=== PATIENT | female | born 1955 | race Caucasian/White ===

== ENCOUNTER → 2018-08-17 | Outpatient (CLI) | payer OTHER ==
--- NOTE | 2018-08-17 14:42 | RADIOLOGY REPORT (SQ) ---
EXAM DESCRIPTION: MRI CERVICAL SPINE WITHOUT COMPLETED DATE/TIME: 08/17/2018 2:11 pm REASON FOR STUDY: R20.2 PARESTHESIA OF SKIN M79.641 PAIN IN RIGHT HAND R20.2 PARESTHESIA OF SKIN COMPARISON: None. TECHNIQUE: Sagittal and Axial imaging includes T1, T2, STIR and gradient echo sequences. LIMITATIONS: None. FINDINGS: ALIGNMENT: Normal. VERTEBRAE: Intact. BONE MARROW: Normal. No marrow replacement or reactive changes. DISCS: Disc spaces are narrowed from C4-C7 with decreased signal intensity in the discs from C5-C7. HARDWARE: None in the spine. CORD AND BASE OF BRAIN: Normal in size and signal intensity. SOFT TISSUES: No soft tissue masses. C1-C2: No significant spinal stenosis. C2-C3: No significant spinal stenosis or exit foraminal stenosis. C3-C4: No significant spinal stenosis or exit foraminal stenosis. C4-C5: Broad-based disc/osteophyte complex that contacts the spinal cord without deforming the cord s ignificantly. C5-C6: Broad-based disc/osteophyte complex contacts the spinal cord without deforming the cord. Mild right foraminal narrowing. C6-C7: No significant spinal stenosis or exit foraminal stenosis. C7-T1: No significant spinal stenosis or exit foraminal stenosis. UPPER THORACIC: Incompletely imaged. No significant spinal stenosis or exit foraminal stenosis. OTHER: No other significant finding. IMPRESSION: There are disc/osteophyte complexes at C4-5 and C5-6 that contacts the anterior aspect o f spinal cord but do not deform the cord. There is mild right foraminal narrowing at C5-6 secondary to the presence of uncovertebral osteophyte. TECHNICAL DOCUMENTATION: JOB ID: [id number] [employer]- All Rights Reserved Reading location - IP/workstation name: [email or web address]
== END ==
LOC: RAD 13:14
PROVIDERS: ATTEND Orthopaedic Surgery Hand Surgery
DX: M48.02 Spinal stenosis, cervical region (principal); R20.2 Paresthesia of skin
CPT/HCPCS: 72141